=== PATIENT | female | born 2000 | race Caucasian/White ===

== ENCOUNTER 2019-10-05 18:19 | Inpatient (IN) | payer OTHER ==
--- NOTE | 2019-10-05 18:32 | PDOC ---
Rapid Medical Evaluation Time Seen by Provider: 10/05/19 18:24 Medical Evaluation: 10/05/19 18:24 I have performed a brief in-person evaluation of this patient. The patient presents with a chief complaint of:chronic nausea, mostly in the am, worsened today and hears "gas sounds" to LUQ. Has been seen for same in past and dx w/ "depression and morning anxiety" per pt. Was on anti-depression meds in past but took herself off meds. No abd pain, change to BM, f/c. Admits to freq marijuana use Pertinent physical exam findings:appears mildy anxious and disheveled in triage, tachy in 150s I have ordered the following:labs/upreg The patient will proceed to the ED for further evaluation. Discharge Disposition - Diagnosis Anxiety, Nausea - Referrals - Patient Instructions - Post Discharge Activity
[2019-10-05 19:06] LABS: BASO % 0.4 % (0-2.0); EOS % 0.2 % (0-4.5); HEMATOCRIT 41.9 % (32.4-45.2); HEMOGLOBIN 14.3 GM/dL (10.7-15.3); LYMPH % 37.2 % (8-40); MCH 32.5 pg (25.7-33.7); MCHC 34.2 g/dl (32.0-36.0); MEAN CELL VOLUME 94.9 fl (80-96); MEAN PLT VOLUME 7.9 fl (7.5-11.1); MONO % 9.6 % (3.8-10.2); NEUT % 52.6 % (42.8-82.8); PLATELET COUNT 304 K/MM3 (134-434); RBC 4.41 M/mm3 (3.60-5.2); RDW 12.8 % (11.6-15.6); WHITE BLOOD COUNT 7.5 K/mm3 (4.0-10.0)
[2019-10-05 19:25] LABS: HCG,QUALITATIVE URINE Negative
--- NOTE | 2019-10-05 19:29 | PDOC ---
*Physical Exam - Vital Signs Last Vital Signs Temp Pulse Resp BP Pulse Ox 97.9 F 109 H 20 147/89 99 10/05/19 18:27 10/05/19 18:51 10/05/19 18:51 10/05/19 18:27 10/05/19 18:51 ED Treatment Course - LABORATORY CBC & Chemistry Diagram: 10/05/19 18:47 10/05/19 18:47 - ADDITIONAL ORDERS Additional order review: Laboratory Results 10/05/19 18:47 Urine HCG, Qual Negative 10/05/19 18:47 RBC 4.41 MCV 94.9 MCHC 34.2 RDW 12.8 MPV 7.9 Neutrophils % 52.6 Lymphocytes % 37.2 Monocytes % 9.6 Eosinophils % 0.2 Basophils % 0.4 Medical Decision Making - Medical Decision Making 10/05/19 19:29 Patient seen by the advanced practice provider under my supervision. Ancillary testing reviewed as necessary. I agree with plan as outlined by the advanced practice provider. Discharge - Discharge Information Problems reviewed: Yes Clinical Impression/Diagnosis: Anxiety, Nausea, Ileus - Follow up/Referral - Patient Discharge Instructions - Post Discharge Activity
[2019-10-05 19:32] LABS: EPI CELLS >36 /uL (0-25.1); HYALINE CASTS 4 /uL (0-3.1); URINE APPEARANCE CLEAR; URINE BACTERIA 1118 /uL (0-1359); URINE BILIRUBIN NEGATIVE (NEGATIVE); URINE COLOR YELLOW; URINE GLUCOSE (UA) NEGATIVE (NEGATIVE); URINE KETONE TRACE (NEGATIVE); URINE LEUK ESTERASE NEGATIVE (NEGATIVE); URINE NITRITE NEGATIVE (NEGATIVE); URINE PROTEIN 3+ (NEGATIVE); URINE RBC 17 /uL (0-23.9); URINE WBC 25 /uL (0-25.8)
--- NOTE | 2019-10-05 19:54 | PDOC ---
History of Present Illness - General Chief Complaint: Nausea Stated Complaint: NAUSEA Time Seen by Provider: 10/05/19 18:24 History Source: Patient Exam Limitations: No Limitations - History of Present Illness Travel History: No Initial Comments: 10/05/19 19:51 HISTORY OF PRESENT ILLNESS: 18-year-old woman denies medical history who presents emergency department for evaluation of left upper quadrant pain and nausea over the past 3 days. Patient is unable to describe the pain in her abdomen but reports that it "makes a noise when I push." She denies any vomiting, diarrhea, constipation, rectal bleeding, dysuria, hematuria, vaginal bleeding or vaginal discharge. Patient endorses frequent recreational marijuana usage. Denies alcohol, tobacco or other illicits. No recent travel or sick contacts. PAST MEDICAL HISTORY: Denies past medical history SURGICAL HISTORY: Denies ALLERGIES: No known drug allergies REVIEW OF SYSTEMS General/Constitutional: Denies fever or chills. Denies weakness, weight change. HEENT: Denies change in vision. Denies ear pain or discharge. Denies sore throat. Cardiovascular: Denies chest pain or shortness of breath. Respiratory: Denies cough, wheezing, or hemoptysis. Gastrointestinal: See HPI Genitourinary: Denies dysuria, frequency, or change in urination. Musculoskeletal: Denies joint or muscle swelling or pain. Denies neck or back pain. Skin and breasts: Denies rash or easy bruising. Neurologic: Denies headache, vertigo, loss of consciousness, or loss of sensation. Psychiatric: Denies depression or anxiety. Endocrine: Denies increased thirst. Denies abnormal weight change. Hematologic/Lymphatic: Denies anemia, easy bleeding, or history of blood clots. Allergic/Immunologic: Denies hives or skin allergy. Denies latex allergy. PHYSICAL EXAM General Appearance: Well-appearing. Disheveled. No apparent distress, no intoxication. HEENT: EOMI, PERRLA, normal ENT inspection, normal voice, TMs normal, pharynx normal. No conjunctival pallor. No photophobia, scleral icterus. Neck: Supple. Trachea midline. No tenderness, rigidity, carotid bruit, stridor, lymphadenopathy, or thyromegaly. Respiratory/Chest: Lungs CTAB. No shortness of breath, chest tenderness, respiratory distress, accessory muscle use. No crackles, rales, rhonchi, stridor, wheezing, dullness Cardiovascular: RRR. S1, S2. No JVD, murmur, bradycardia, tachycardia. Vascular Pulses: Dorsalis-Pedis (R): 2+, Dorsalis-Pedis (L): 2+ Gastrointestinal/Abdominal: Normal bowel sounds. Abdomen soft, non-distended. No tenderness or rebound tenderness. No organomegaly, pulsatile mass, guarding, hernia, hepatomegaly, splenomegaly. Audible bowel sounds present upon palpation of the left upper quadrant. Musculoskeletal/Extremities: Normal inspection. FROM of all extremities, normal capillary refill. Pelvis Stable. No CVA tenderness. No tenderness to extremities, pedal edema, swelling, erythema or deformity. 10/05/19 19:54 Past History - Medical History Allergies/Adverse Reactions: Allergies Allergy/AdvReac Type Severity Reaction Status Date / Time No Known Allergies Allergy Verified 10/05/19 18:25 Home Medications: Ambulatory Orders NK [No Known Home Medication] 10/05/19 COPD: No Psychiatric Problems: Yes (ANXIETY, DEPRESSIONI) - Reproductive History Is Patient Now?: (UNKNOWN) - Immunization History Immunization Up to Date: No - Psycho-Social/Smoking History Smoking History: Never smoked - Substance Abuse Hx (Audit-C & DAST Scrn) How often the patient has a drink containing alcohol: Never Score: In Men: 4 or > Positive; In Women: 3 or > Positive: 0 Screen Result (Pos requires Nsg. Audit-10AR): Negative In the last yr the pt used illegal drug/Rx for NonMed reason: Yes Score: Yes response is considered Positive: 1 Screen Result (Positive result requires Nsg. DAST-10): Positive *Physical Exam - Vital Signs Last Vital Signs Temp Pulse Resp BP Pulse Ox 97.9 F 109 H 20 147/89 99 10/05/19 18:27 10/05/19 18:51 10/05/19 18:51 10/05/19 18:27 10/05/19 18:51 ED Treatment Course - LABORATORY CBC & Chemistry Diagram: 10/07/19 06:26 10/07/19 06:26 - ADDITIONAL ORDERS Additional order review: Laboratory Results 10/05/19 18:47 Urine Color Yellow Urine Appearance Clear Urine pH 6.0 Ur Specific [place] 1.031 Urine Protein 3+ H Urine Glucose (UA) Negative Urine Ketones Trace H Urine Blood Negative Urine Nitrite Negative Urine Bilirubin Negative Urine Urobilinogen 1.0 Ur Leukocyte Esterase Negative Urine WBC (Auto) 25 Urine RBC (Auto) 17 Urine Casts (Auto) 4 U Epithel Cells (Auto) >36 Urine Bacteria (Auto) 1118 Urine HCG, Qual Negative 10/05/19 18:47 RBC 4.41 MCV 94.9 MCHC 34.2 RDW 12.8 MPV 7.9 Neutrophils % 52.6 Lymphocytes % 37.2 Monocytes % 9.6 Eosinophils % 0.2 Basophils % 0.4 Medical Decision Making - Medical Decision Making 10/05/19 19:55 A/P: 18-year-old woman with left upper quadrant pain and nausea for the past 3 days Physical exam is unremarkable with the exception of disheveled appearance. EKG performed in triage sinus rhythm with rate of 121. Normal intervals present. Normal axis. Orders per RME will add cardiac profile and TSH CT chest abdomen pelvis with IV contrast Normal saline 1 L IV bolus Reassess 10/05/19 20:24 10/05/19 20:55 Laboratory Tests 10/05/19 10/05/19 10/05/19 18:47 18:47 18:47 WBC 7.5 RBC 4.41 Hgb 14.3 Hct 41.9 MCV 94.9 MCH 32.5 MCHC 34.2 RDW 12.8 Plt Count 304 MPV 7.9 Absolute Neuts (auto) 4.0 Neutrophils % 52.6 Lymphocytes % 37.2 Monocytes % 9.6 Eosinophils % 0.2 Basophils % 0.4 Nucleated RBC % 0 Sodium 141 Potassium 4.1 Chloride 107 Carbon Dioxide 23 Anion Gap 11 BUN 13.7 Creatinine 0.9 Est GFR (CKD-EPI)AfAm 106.68 Est GFR (CKD-EPI)NonAf 92.04 Random Glucose 142 H Calcium 9.6 Total Bilirubin 0.7 AST 14 L ALT 13 Alkaline Phosphatase 74 Total Protein 8.5 H Albumin 4.9 Lipase 81 TSH 0.86 Urine Color Yellow Urine Appearance Clear Urine pH 6.0 Ur Specific [place] 1.031 Urine Protein 3+ H Urine Glucose (UA) Negative Urine Ketones Trace H Urine Blood Negative Urine Nitrite Negative Urine Bilirubin Negative Urine Urobilinogen 1.0 Ur Leukocyte Esterase Negative Urine WBC (Auto) 25 Urine RBC (Auto) 17 Urine Casts (Auto) 4 U Epithel Cells (Auto) >36 Urine Bacteria (Auto) 1118 Urine HCG, Qual Negative Opiates Screen Methadone Screen Barbiturate Screen Phencyclidine Screen Ur Amphetamines Screen MDMA (Ecstasy) Screen Benzodiazepines Screen Cocaine Screen U Marijuana (THC) Screen Alcohol, Quantitative Pending 10/05/19 18:47 WBC RBC Hgb Hct MCV MCH MCHC RDW Plt Count MPV Absolute Neuts (auto) Neutrophils % Lymphocytes % Monocytes % Eosinophils % Basophils % Nucleated RBC % Sodium Potassium Chloride Carbon Dioxide Anion Gap BUN Creatinine Est GFR (CKD-EPI)AfAm Est GFR (CKD-EPI)NonAf Random Glucose Calcium Total Bilirubin AST ALT Alkaline Phosphatase Total Protein Albumin Lipase TSH Urine Color Urine Appearance Urine pH Ur Specific [place] Urine Protein Urine Glucose (UA) Urine Ketones Urine Blood Urine Nitrite Urine Bilirubin Urine Urobilinogen Ur Leukocyte Esterase Urine WBC (Auto) Urine RBC (Auto) Urine Casts (Auto) U Epithel Cells (Auto) Urine Bacteria (Auto) Urine HCG, Qual Opiates Screen Negative Methadone Screen Negative Barbiturate Screen Negative Phencyclidine Screen Negative Ur Amphetamines Screen Negative MDMA (Ecstasy) Screen Negative Benzodiazepines Screen Negative Cocaine Screen Negative U Marijuana (THC) Screen Positive A* Alcohol, Quantitative 10/05/19 22:00 CT scan read by Dr. Crane: There is no evidence of pulmonary embolus within the main pulmonary artery and its proximal branches bilaterally. No acute lung disease is present. No enlarged mediastinal or hilar lymph nodes are identified. Limited evaluation of the abdomen and pelvis due to lack of oral contrast and paucity of fat. There is suggestion of mild small bowel ileus in the pelvis. However there is no CT evidence of an acute process in the abdomen/pelvis. Correlate clinically for further evaluation. Will admit patient to hospitalist service for bowel rest and evaluation by surgery in the morning. Discharge - Discharge Information Problems reviewed: Yes Clinical Impression/Diagnosis: Anxiety, Nausea, Ileus Condition: Stable - Follow up/Referral - Patient Discharge Instructions - Post Discharge Activity
[2019-10-05 20:27] LABS: COCAINE, UR NEGATIVE ng/ml (CUTOFF=300); METHADONE, UR NEGATIVE ng/ml (CUTOFF=300); OPIATES, URI NEGATIVE ng/ml (CUTOFF=300); PHENCYCLIDINE,URINE NEGATIVE ng/ml (CUTOFF=25); URINE AMPHETAMINES NEGATIVE ng/ml (CUTOFF=500); URINE BARBITURATES NEGATIVE ng/ml (CUTOFF=200); URINE BENZODIAZEPINES NEGATIVE ng/ml (CUTOFF=200)
[2019-10-05] MEDS ORDERED: SODIUM CHLORIDE 1,000 ML IV STA (20:27)
[2019-10-05 20:34] LABS: ALBUMIN 4.9 g/dl (3.4-5.0); ALK PHOS 74 U/L (45-117); ANION GAP 11 MMOL/L (8-16); BILIRUBIN,TOTAL 0.7 mg/dL (0.2-1); BLOOD UREA NITROGEN 13.7 mg/dL (7-18); CALCIUM 9.6 mg/dL (8.5-10.1); CHLORIDE 107 mmol/L (98-107); CO2 23 mmol/L (21-32); CREATININE 0.9 mg/dL (0.55-1.3); GLUCOSE,RANDOM 142 mg/dL (74-106); LIPASE 81 U/L (73-393); POTASSIUM 4.1 mmol/L (3.5-5.1); SGOT/AST 14 U/L (15-37); SGPT/ALT 13 U/L (13-61); SODIUM 141 mmol/L (136-145); TOT PROT 8.5 g/dl (6.4-8.2)
--- NOTE | 2019-10-05 22:28 | PN ---
Teaching Attending Note Name of Resident: Joaquim Da Silva ATTENDING PHYSICIAN STATEMENT I saw and evaluated the patient. I reviewed the resident's note and discussed the case with the resident. I agree with the resident's findings and plan as documented. SUBJECTIVE: Patient is a 18-year-old woman with PMH of Marijuana use who presents to the ER with left upper quadrant abdominal pain and nausea over the past 3 days. Patient is unable to describe the pain in her abdomen but reports that it "makes a noise when I push." She denies any vomiting, diarrhea, constipation, rectal bleeding, dysuria, hematuria, vaginal bleeding or abnormal vaginal discharge. She has poor appetite and has had about 10lbs of unintended weight loss in the past 3 months. She is sexually active with one partner and was on Depo provera for control up to 3 months ago. Has had menorrhagia since stopping Depo provera. LMP was 1 week ago. 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 Patient denies chest pain, shortness of breath, palpitations, dizziness, fever, chills, melena, hematochezia or hematuria. Patient endorses frequent recreational marijuana usage. Her entire family is in [facility] and she is unaware of any relevant medical history. Denies alcohol, tobacco or other illicit drug use. No sick contacts or recent travels. OBJECTIVE: Alert Vital Signs Period Temp Pulse Resp BP Sys/Pérez Pulse Ox Last 24 Hr 97.9 F 109-145 20-20 147/89 99-100 HEENT: No Jaundice, eye redness or discharge, PERRLA, EOMI. Normocephalic, atraumatic. External ears are normal and hearing is grossly intact. No nasal discharge. Neck: Supple, nontender. No palpable adenopathy or thyromegaly. No JVD Chest: Good effort. Clear to auscultation and percussion. Heart: Regular. No S3, rub or murmur Abdomen: Not distended, soft, LUQ tenderness; no HSM. No rebound or guarding. Normal bowel sounds. Ext: Peripheral pulses intact. No leg edema. Skin: Warm and dry. No petechiae, rash or ecchymosis. Neuro: Alert. Oriented x3. CN 2-12 grossly intact. Sensation grossly intact in all four extremities and DTR are symmetric. Psych: Appropriate mood and affect. Good insight. Abnormal Lab Results 10/05/19 10/05/19 10/05/19 18:47 18:47 18:47 Random Glucose 142 H AST 14 L Total Protein 8.5 H Urine Protein 3+ H Urine Ketones Trace H U Marijuana (THC) Screen Positive A* Home Medications Medication Instructions Recorded NK [No Known Home Medication] 10/05/19 Current Medications Generic Name Dose Route Start Last Admin Trade Name Freq PRN Reason Stop Dose Admin Heparin Sodium (Porcine) 5,000 unit 10/06/19 06:00 Heparin - SQ TID MEL Dextrose/Sodium Chloride 1,000 mls @ 125 mls/hr 10/06/19 01:15 10/06/19 01:44 D5-Ns - IV 125 mls/hr [facility] Administration ASSESSMENT AND PLAN: 1. Small bowel Ileus - Cause unclear though weight loss and proteinuria suggest a systemic illness. Chest CTA didnot show pulmonary embolism and CT abdomen/pelvis with IV contrast shows small bowel ileus and multiple cysts in t he right ovary. She has proteinuria and urine toxicology shows marijuana. Will keep her NPO, give IV D5NS, get DEIRDRE, HbA1c, HIV test, lipid profile, urine protein/creatinine ratio, ESR, CRP and consult GI. Use tylenol PRN for pain control. Viral testing for COVID-19 ordered and patient placed on airborne, droplet and contact isolation. EKG shows sinus tachycardia at 121/minute and QTc [address]-T wave changes and conduction delay?. Initial troponin is negative. Will get repeat EKG after another liter of IV fluid. Consult Senior Research Project Manager for menorrhagia. 2. DVT prophylaxis - Lovenox 40 mg SQ q 24 hours. 3. Advance directives - Full code
[2019-10-06 01:05] VITALS: BMI 17.8
[2019-10-06] MEDS ORDERED: DEXTROSE 5%-NORMAL SALINE 1,000 ML IV SCH (01:15)
[2019-10-06] MEDS: HEPARIN NA (PORCINE) 5,000 UNITS/ML 1ML VIAL SQ SCH ×3 (05:24→21:21)
--- NOTE | 2019-10-06 06:11 | HP ---
HISTORY OF PRESENT ILLNESS: Patient is a 18-year-old woman with PMH of UTI and Marijuana use who presents to the ER with left upper quadrant abdominal pain with associated nausea of about 3 months. She decided to come to the hospital because it became worse the past 3 days. She is unable to accurately describe it. Also interpretes the pain as pressue like and makes noise when she pushes down her periumblical region. She denies any vomiting, diarrhea, constipation, rectal bleeding, dysuria, vaginal bleeding or abnormal vaginal discharge. She reports reduced appetite and early satiety and has had about 10lbs of unintended weight loss in the past 3 months. 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 Patient denies chest pain, shortness of breath, palpitations, dizziness, fever, chills, melena, hematochezia or hematuria. Patient endorses frequent recreational marijuana usage. Her entire family is in [facility] and she is unaware of any relevant medical history. Denies alcohol, tobacco or other illicit drug use. No sick contacts or recent travels. Recent Travel: None PAST SURGICAL HISTORY: Left femoral hernioraphe Social History: Smoking: None Alcohol:None Drugs: Cannabis Allergies No Known Allergies AllergY OBS/GYNAE: LMP was a week ago. Stopped using Depo provera 3months ago. Not on any form of contraceptive currently. Menorrhagia after cessation of depo provera use. Now using daily tampoon use of 4 vs 3 previously. Nightly tampoon use of zero to 1 or 2 to avoid fiscal clerk dripping of. She is sexually active with one male partner. HOME MEDICATIONS: Home Medications Medication Instructions Recorded NK [No Known Home Medication] 10/05/19 REVIEW OF SYSTEMS Negative except as above Vital Signs - 24 hr 10/05/19 10/05/19 10/05/19 18:27 18:51 23:36 Temperature 97.9 F Pulse Rate 145 H Pulse Rate [ 109 H Apical] Respiratory 20 20 Rate Blood Pressure 147/89 Blood Pressure [Left Arm] O2 Sat by Pulse 100 99 100 Oximetry (%) 10/05/19 10/06/19 10/06/19 23:46 01:01 01:10 Temperature 98.5 F 98.2 F Pulse Rate 59 L Pulse Rate [ 72 Apical] Respiratory 20 18 Rate Blood Pressure 105/60 Blood Pressure 105/54 L [Left Arm] O2 Sat by Pulse 99 99 99 Oximetry (%) PHYSICAL EXAMINATION GENERAL: Awake, alert, and fully oriented, in no acute distress. HEAD: Normal with no signs of trauma. EYES: Asclera anicteric, conjunctiva clear. No lid lag. EARS: No hearing impairement NECK: Normal range of motion, supple without lymphadenopathy, JVD, or masses. LUNGS: Vesicular Breath sounds heard and b/l. No wheezes nor crackles. No sign of respiratory distress. HEART: Bedside repeated GA= 59/MIN, Regular rate and rhythm, normal S1 and S2 without murmur, rub or gallop. ABDOMEN: Soft, nontender, not distended, normoactive bowel sounds, no guarding, no rebound, no masses. No hepatomegaly or splenomegaly. FARA: MUSCULOSKELETAL: Normal range of motion at all joints. No bony deformities or tenderness. No CVA tenderness. UPPER EXTREMITIES: 2+ pulses, warm, well-perfused. No cyanosis. No clubbing. No peripheral edema. LOWER EXTREMITIES: 2+ pulses, warm, well-perfused. No calf tenderness. No peripheral edema. NEUROLOGICAL: Normal speech. Normal gait. PSYCHIATRIC: Cooperative. Good eye contact. Appropriate mood and affect. SKIN: Warm, dry, normal turgor, no rashes or lesions noted, normal capillary refill. Laboratory Results - last 24 hr 10/05/19 10/05/19 10/05/19 18:47 18:47 18:47 WBC 7.5 RBC 4.41 Hgb 14.3 Hct 41.9 MCV 94.9 MCH 32.5 MCHC 34.2 RDW 12.8 Plt Count 304 MPV 7.9 Absolute Neuts (auto) 4.0 Neutrophils % 52.6 Lymphocytes % 37.2 Monocytes % 9.6 Eosinophils % 0.2 Basophils % 0.4 Nucleated RBC % 0 Sodium 141 Potassium 4.1 Chloride 107 Carbon Dioxide 23 Anion Gap 11 BUN 13.7 Creatinine 0.9 Est GFR (CKD-EPI)AfAm 106.68 Est GFR (CKD-EPI)NonAf 92.04 Random Glucose 142 H Calcium 9.6 Total Bilirubin 0.7 AST 14 L ALT 13 Alkaline Phosphatase 74 Creatine Kinase Creatine Kinase Index CK-MB (CK-2) Troponin I Total Protein 8.5 H Albumin 4.9 Lipase 81 TSH 0.86 Urine Color Yellow Urine Appearance Clear Urine pH 6.[address] 1.031 Urine Protein 3+ H Urine Glucose (UA) Negative Urine Ketones Trace H Urine Blood Negative Urine Nitrite Negative Urine Bilirubin Negative Urine Urobilinogen 1.0 Ur Leukocyte Esterase Negative Urine WBC (Auto) 25 Urine RBC (Auto) 17 Urine Casts (Auto) 4 U Epithel Cells (Auto) >36 Urine Bacteria (Auto) 1118 Urine HCG, Qual Negative Stool Occult Blood Opiates Screen Methadone Screen Barbiturate Screen Phencyclidine Screen Ur Amphetamines Screen MDMA (Ecstasy) Screen Benzodiazepines Screen Cocaine Screen U Marijuana (THC) Screen Alcohol, Quantitative < 3 10/05/19 10/05/19 10/06/19 18:47 21:00 00:37 WBC RBC Hgb Hct MCV MCH MCHC RDW Plt Count MPV Absolute Neuts (auto) Neutrophils % Lymphocytes % Monocytes % Eosinophils % Basophils % Nucleated RBC % Sodium Potassium Chloride Carbon Dioxide Anion Gap BUN Creatinine Est GFR (CKD-EPI)AfAm Est GFR (CKD-EPI)NonAf Random Glucose Calcium Total Bilirubin AST ALT Alkaline Phosphatase Creatine Kinase 188 Creatine Kinase Index No Result Required. CK-MB (CK-2) < 1.0 Troponin I < 0.02 Total Protein Albumin Lipase TSH Urine Color Urine Appearance Urine pH Ur Specific [address] Urine Protein Urine Glucose (UA) Urine Ketones Urine Blood Urine Nitrite Urine Bilirubin Urine Urobilinogen Ur Leukocyte Esterase Urine WBC (Auto) Urine RBC (Auto) Urine Casts (Auto) U Epithel Cells (Auto) Urine Bacteria (Auto) Urine HCG, Qual Stool Occult Blood Negative Opiates Screen Negative Methadone Screen Negative Barbiturate Screen Negative Phencyclidine Screen Negative Ur Amphetamines Screen Negative MDMA (Ecstasy) Screen Negative Benzodiazepines Screen Negative Cocaine Screen Negative U Marijuana (THC) Screen Positive A* Alcohol, Quantitative ASSESSMENT/PLAN: # Small bowel Ileus: Etiology is unclear Significant unintentional weight loss over 3 months and proteinuria suggest a systemic illness. Chest CTA did not show pulmonary embolism and CT abdomen/pelvis with IV contrast shows small bowel ileus and multiple cysts in the right ovary. Urine is positive for 3+ protein Urine toxicology shows marijuana. #Bradycardia on ekg: EKG shows sinus tachycardia at 121/minute and QTc [address]-T wave changes and conduction delay? Another liter of IV fluid was administered before ordering repeat ekg Initial troponin is negative. Repeat EKG shows QTC= 384, HR with sinus bradycardia. Cannabis dependence could predispose to bradycardia Though not clinically suspective, please continue to monitor for sign of syncope: sudden fall,blackouts, dizziness, lightheaded visual disturbance # Keep on NPO Give IV D5NS DEIRDRE HbA1c HIV test RPR Lipid profile, urine protein/creatinine ratio, ESR, CRP and consult GI. Use tylenol PRN for pain control. Viral testing for COVID-19 ordered. Patient placed on airborne, droplet and contact isolation. Consult Tare Worker for menorrhagia. # DVT prophylaxis - Lovenox 40 mg SQ q 24 hours. # Advance directives - Full code Visit type - Emergency Visit Emergency Visit: Yes ED Registration Date: 10/05/19 Care time: The patient presented to the Emergency Department on the above date a nd was hospitalized for further evaluation of their emergent condition. - New Patient This patient is new to me today: Yes Date on this admission: 10/05/19 - Critical Care Critical Care patient: No ATTENDING PHYSICIAN STATEMENT I saw and evaluated the patient. I reviewed the resident's note and discussed the case with the resident. I agree with the resident's findings and plan as documented. SUBJECTIVE: OBJECTIVE: ASSESSMENT AND PLAN:
--- NOTE | 2019-10-06 09:02 | EKG ---
Test Reason : Blood Pressure : / mmHG Vent. Rate : 058 BPM Atrial Rate : 058 BPM P-R Int : 166 ms QRS Dur : 084 ms QT Int : 392 ms P-R-T Axes : 067 046 048 degrees QTc Int : 384 ms SINUS BRADYCARDIA WITH MARKED SINUS ARRHYTHMIA OTHERWISE NORMAL ECG WHEN COMPARED WITH ECG OF 05-OCT-2019 18:49, VENT. RATE HAS DECREASED BY 63 BPM RSR' PATTERN IN V1 IS NO LONGER PRESENT Confirmed by Paul Vo ([id number]) on 10/06/2019 9:02:18 AM Referred By: Confirmed By:Paul Vo
--- NOTE | 2019-10-06 09:07 | EKG ---
Test Reason : Blood Pressure : / mmHG Vent. Rate : 121 BPM Atrial Rate : 121 BPM P-R Int : 126 ms QRS Dur : 096 ms QT Int : 298 ms P-R-T Axes : 075 052 044 degrees QTc Int : 423 ms SINUS TACHYCARDIA LEFT ATRIAL ENLARGEMENT RSR' OR QR PATTERN IN V1 SUGGESTS RIGHT VENTRICULAR CONDUCTION DELAY NONSPECIFIC ST ABNORMALITY ABNORMAL ECG NO PREVIOUS ECGS AVAILABLE Confirmed by Paul Vo ([id number]) on 10/06/2019 9:07:00 AM Referred By: Confirmed By:Paul Vo
--- NOTE | 2019-10-06 11:37 | PN ---
Progress Note (short form) - Note Progress Note: GI CONSULT DICTATED DIET ADVANCED UNLIKELY OBSTRUCTIVE PROCESS /
--- NOTE | 2019-10-06 16:09 | PN ---
Teaching Attending Note Name of Resident: Navarro Duran ATTENDING PHYSICIAN STATEMENT I saw and evaluated the patient. I reviewed the resident's note and discussed the case with the resident. I agree with the resident's findings and plan as documented. SUBJECTIVE: Seen and examined at bedside. Patient reports nausea is acute on chronic. She has had nearly daily vomiting before breakfast in the morning for 4 months and for several years prior to that she also had vomiting in the morning though not as frequently. States she is currently feeling well. Pending GI evaluation as well as follow-up of proteinuria OBJECTIVE: Last Vital Signs Temp Pulse Resp BP Pulse Ox 98.5 F 58 L 18 115/66 100 10/06/19 14:00 10/06/19 14:00 10/06/19 05:59 10/06/19 14:00 10/06/19 05:59 PE: Per resident note Labs/Imaging: reviewed ASSESSMENT AND PLAN: 18-year-old female with past medical history of marijuana, chronic morning nausea and vomiting who presents with worsening and nausea and vomiting over the last several days. Found to have small bowel ileus #Acute on chronic nausea and vomiting in the setting of ileus Patient has had no abdominal surgeries or other reasons that would predispose an otherwise young healthy woman for ileus. Chronic nature of the symptoms suggest there is an underlying disorder Symptoms not consistent with cannabinoid cyclic vomiting syndrome GI consulted: Pending recommendations Start full liquid diet #Proteinuria Pending protein creatinine ratio HIV negative Not diabetic If protein creatinine ratio is significantly elevated will get inpatient consult, otherwise
--- NOTE | 2019-10-06 17:14 | CONS ---
DATE OF CONSULTATION: DATE OF DICTATION: 10/06/2019 GASTROENTEROLOGY CONSULTATION HISTORY OF PRESENT ILLNESS: The patient is a 18-year-old female with a past medical history of urinary tract infections, frequent marijuana use, who is admitted to the hospital with complaints of left upper quadrant abdominal pain and nausea and vomiting intermittent for approximately 3 months. She states her pain worsened, and her vomiting over the past couple of days prior to admission, prompting her to come in for further evaluation. She denies any hematemesis, known hematochezia, constipation, diarrhea. She does admit to weight loss over the past couple of months and reduced appetite. She has never had an endoscopic evaluation. PAST MEDICAL AND SURGICAL HISTORY: As listed in the HPI. ALLERGIES: No known drug allergies. SOCIAL HISTORY: Does not smoke, drink, but does smoke marijuana. FAMILY HISTORY: No history of GI or gynecological malignancy. MEDICATION: No home medication. REVIEW OF SYSTEMS: Negative as per the HPI. PHYSICAL EXAMINATION: Vital Signs: Temperature 98, pulse 58, blood pressure 115/66, respiratory rate 18, oxygen saturation 100% on room air. General: In no acute distress. HEENT: Anicteric sclerae. Cardiovascular: S1, S2, regular rate and rhythm. Lungs: Bilaterally clear to auscultation. Abdomen: Soft, nontender. Extremities: No edema. LABORATORY: White blood cell count 7.5, hemoglobin and hematocrit 14/41, MCV 94, platelet count 304. Sodium 141, potassium 4.1, BUN/creatinine 13/0.9, AST 14, ALT 13, alkaline phosphatase 74, lipase 81. Urine: 3+ protein, trace ketones. Stool for occult blood was negative. Toxicology screen was positive for marijuana. DEIRDRE screen was pending. COVID-19 is still pending. HIV was negative. She had an abdomen and pelvis CT scan which revealed no evidence of pulmonary embolism, limited evaluation of the abdominal pelvis due to lack of oral contrast suggestion of a mild small bowel ileus in the pelvis. IMPRESSION: Nausea, vomiting, abdominal pain, most likely secondary to her frequent marijuana use, cyclical vomiting syndrome versus an underlying infectious process. RECOMMENDATION: Advance diet as tolerated, abstinence from marijuana is recommended, antiemetic therapy as needed, Zofran 4 mg p.o. q.8 hours. Gentle hydration. If she tolerates her diet, she can be discharged tomorrow with outpatient followup. Considering she has had decreased appetite and weight loss, she would benefit from a diagnostic upper endoscopy; however, this can be done as an outpatient. DO ADI LOPEZ/[id number]
--- NOTE | 2019-10-06 18:33 | CONSULT ---
Consult - text type - Consultation Consultation Note: 18yo G0 here with LUQ pain, noted a history of heavy periods and thus [facility] consulted for menorrhagia Pt previously on Depo with last shot given 1 year ago. Receiving [facility] care from [facility] in [place] Not actively bleeding. LMP 1 week ago. Previous periods were always light and 3 days in length. Now periods are longer and occ twice a month. Chart and labs reviewed; no anemia and low suspicious for serious menorrhagia given Hct of 41. Pt has outside OBGYN at [facility] whom has been giving her Depo and may follow up as an outpatient for ongoing discussion and care there or at [facility] care. Given she is not actively bleeding, no clinical evidence of menorrhagia, inpatient management is not indicted at this time. Isrrael Troy MD
--- NOTE | 2019-10-06 20:46 | PN ---
Physical Exam: SUBJECTIVE: Patient seen and examined at bedside. Patient is currently comfortable and does not have nausea/vomiting/abdominal pain. Patient explains that her nausea ensues in the morning and especially with brushing teeth. She also reports that marijuana helps to reduce the sensation of nausea. OBJECTIVE: Vital Signs Period Temp Pulse Resp BP Sys/Pérez Pulse Ox Last 24 Hr 97.9 F-98.5 F 58-80 18-20 98-115/50-66 99-100 GENERAL: The patient is awake, alert, and fully oriented, in no acute distress. LUNGS: Breath sounds equal, clear to auscultation bilaterally, no wheezes, no crackles, no accessory muscle use. HEART: Regular rate and rhythm, S1, S2 without murmur, rub or gallop. ABDOMEN: Soft, nontender, nondistended, normoactive bowel sounds, no guarding, no rebound, no hepatosplenomegaly, no masses. EXTREMITIES: 2+ pulses, warm, well-perfused, no edema. Laboratory Results - last 24 hr 10/05/19 10/05/19 10/06/19 18:47 21:00 00:37 Hemoglobin A1c % Creatine Kinase 188 Creatine Kinase Index No Result Required. CK-MB (CK-2) < 1.0 Troponin I < 0.02 Stool Occult Blood Negative Alcohol, Quantitative < 3 Syphilis Serology HIV Ag/Ab Combo Qual HIV-1 Antibody HIV Ag/Ab Interpret HIV-2 Antibody HIV 1&2 Ag/Ab, 4th Gen HIV 1&2 Ab Final Interp 10/06/19 10/06/19 10/06/19 05:25 05:25 05:25 Hemoglobin A1c % 5.5 Creatine Kinase Creatine Kinase Index CK-MB (CK-2) Troponin I Stool Occult Blood Alcohol, Quantitative Syphilis Serology Non-reactive HIV Ag/Ab Combo Qual HIV-1 Antibody Cancelled HIV Ag/Ab Interpret Cancelled HIV-2 Antibody Cancelled HIV 1&2 Ag/Ab, 4th Gen Cancelled HIV 1&2 Ab Final Interp Cancelled 10/06/19 05:25 Hemoglobin A1c % Creatine Kinase Creatine Kinase Index CK-MB (CK-2) Troponin I Stool Occult Blood Alcohol, Quantitative Syphilis Serology HIV Ag/Ab Combo Qual Negative HIV-1 Antibody HIV Ag/Ab Interpret HIV-2 Antibody HIV 1&2 Ag/Ab, 4th Gen HIV 1&2 Ab Final Interp Active Medications Generic Name Dose Route Start Last Admin Trade Name Freq PRN Reason Stop Dose Admin Heparin Sodium (Porcine) 5,000 unit 10/06/19 06:00 10/06/19 13:51 Heparin - SQ 5,000 unit TID MEL Administration ASSESSMENT/PLAN: Diana is a 18F w a h/o marijuana use, nausea and vomiting shortly after waking up in the morning and worsening for the past [address] scan reveals small bowel ileus. 2 #Acute on chronic nausea and vomiting - CT SCAN: No evidence of pulmonary embolus with the main pulmonary artery and its proximal branches, bilaterally. No acute lung disease present. No enlarged mediastinal or hilar lymph nodes are identified. There is suggestion of mild small bowel ileus in the pelvis. However, there is no CT evidence of acute process in the abdomen pelvis, Correlate clinically for further evaluation. -Unknown eitiology or past medical history of ileus - unlikely for annabinoid cyclic vomiting syndrome - GI consulted - Dr. Hair, Diana #Proteinuria Pending protein creatinine ratio HIV negative - Urine protein +3 -continue to monitor UA, CBC, BMP #FEN - Full liquid diet Visit type - Emergency Visit Emergency Visit: Yes ED Registration Date: 10/05/19 Care time: The patient presented to the Emergency Department on the above date and was hospitalized for further evaluation of their emergent condition. - New Patient This patient is new to me today: Yes Date on this admission: 10/07/19 - Critical Care Critical Care patient: No - Discharge Referral Referred to [facility] Med P.C.: No ATTENDING PHYSICIAN STATEMENT I saw and evaluated the patient. I reviewed the resident's note and discussed the case with the resident. I agree with the resident's findings and plan as documented. SUBJECTIVE: OBJECTIVE: ASSESSMENT AND PLAN:
[2019-10-07] MEDS: HEPARIN NA (PORCINE) 5,000 UNITS/ML 1ML VIAL SQ SCH ×2 (06:12→13:01)
[2019-10-07 07:41] LABS: BASO % 0.6 % (0-2.0); EOS % 0.3 % (0-4.5); HEMATOCRIT 37.8 % (32.4-45.2); HEMOGLOBIN 12.9 GM/dL (10.7-15.3); MCH 31.9 pg (25.7-33.7); MCHC 34.1 g/dl (32.0-36.0); MEAN CELL VOLUME 93.5 fl (80-96); MEAN PLT VOLUME 8.2 fl (7.5-11.1); MONO % 9.3 % (3.8-10.2); NEUT % 45.8 % (42.8-82.8); PLATELET COUNT 278 K/MM3 (134-434); RBC 4.04 M/mm3 (3.60-5.2); RDW 12.7 % (11.6-15.6); WHITE BLOOD COUNT 6.4 K/mm3 (4.0-10.0)
[2019-10-07 08:09] LABS: BLOOD UREA NITROGEN 9.5 mg/dL (7-18); CALCIUM 8.9 mg/dL (8.5-10.1); CREATININE 0.7 mg/dL (0.55-1.3); MAGNESIUM 2.3 mg/dL (1.8-2.4); PHOSPHOROUS 4.4 mg/dL (2.5-4.9); POTASSIUM 3.8 mmol/L (3.5-5.1)
--- NOTE | 2019-10-07 12:04 | PN.GI ---
GI Progress Note Subjective: No vomiting Abdominal pain improved Did not eat breakfast - Objective Vital Signs: Vital Signs Temperature 97.7 F 10/07/19 05:59 Pulse Rate 50 L 10/07/19 05:59 Respiratory Rate 18 10/07/19 09:00 Blood Pressure 102/64 10/07/19 05:59 O2 Sat by Pulse Oximetry (%) 98 10/07/19 09:00 Constitutional: Calm Eyes: No: Sclera Icterus Cardiovascular: Yes: Regular Rate and Rhythm Respiratory: Yes: CTA Bilaterally Gastrointestinal Inspection: Yes: Other (decorative umbilical rings in place). No: Distention ...Auscultate: Yes: Normoactive Bowel Sounds ...Palpate: Yes: Soft. No: Hepatomegaly, Splenomegaly, Tenderness Edema: No (No LE edema) Neurological: Yes: Alert Labs: CBC, BMP 10/07/19 06:26 10/07/19 06:26 Hepatic Panel Total Bilirubin 0.7 mg/dL (0.2-1) 10/05/19 18:47 AST 14 U/L (15-37) L 10/05/19 18:47 ALT 13 U/L (13-61) 10/05/19 18:47 Alkaline Phosphatase 74 U/L (45-117) 10/05/19 18:47 Albumin 4.9 g/dl (3.4-5.0) 10/05/19 18:47 Problem List - Problems (1) Nausea Assessment/Plan: N/V and abdominal pain improved Diet as tolerated Urges complete cessation of marijuana Outpatient evaluation if continued improvement If persistent symptoms, make NPO after midnight except meds and order upper GI series Code(s): R11.0 - NAUSEA
[2019-10-07 13:27] VITALS: BP 105/65; PULSE 73; TEMP 98.3
--- NOTE | 2019-10-07 17:16 | PN ---
Teaching Attending Note Name of Resident: Ghassan Kerns ATTENDING PHYSICIAN STATEMENT I saw and evaluated the patient. I reviewed the resident's note and discussed the case with the resident. I agree with the resident's findings and plan as documented. SUBJECTIVE: Seen and examined at bedside. Patient was slightly nauseous this morning but did not vomit. Ate her breakfast without complication and is asking to be discharged. Patient will follow-up with gastroenterology as an outpatient for further work-up OBJECTIVE: Last Vital Signs Temp Pulse Resp BP Pulse Ox 98.3 F 73 18 105/65 99 10/07/19 13:25 10/07/19 13:25 10/07/19 13:25 10/07/19 13:25 10/07/19 12:04 PE: Per resident note Labs/Imaging: reviewed ASSESSMENT AND PLAN: 18-year-old female with past medical history of marijuana, chronic morning nausea and vomiting who presents with worsening and nausea and vomiting over the last several days. Found to have small bowel ileus. Patient was initially started on full liquid diet which she tolerated advance to full diet. She did not have any vomiting the day of discharge. Was seen by gastroenterology who recommended outpatient follow-up. Patient found also found to have mild proteinuria with protein creatinine ratio of 0.3. Patient should have follow-up urinalysis in several weeks to see if it is persistent. A1c and HIV were both normal.
--- NOTE | 2019-10-08 07:19 | DS ---
Physical Exam: SUBJECTIVE: Patient seen and examined at bedside. Tolerating a full diet. Patient endorses resolution of symptoms. Patient agrees to follow up with Dr. Hair outpatient. OBJECTIVE: Vital Signs Period Temp Pulse Resp BP Sys/Pérez Pulse Ox Last 24 Hr 98.2 F-98.3 F 61-73 16-18 105-108/65-69 98-99 PHYSICAL EXAM GENERAL: The patient is awake, alert, and fully oriented, in no acute distress. ENT: Ears normal, nares patent, oropharynx clear without exudates, moist mucous membranes. LUNGS: Breath sounds equal, clear to auscultation bilaterally, no wheezes, no crackles, no accessory muscle use. HEART: Regular rate and rhythm, S1, S2 without murmur, rub or gallop. ABDOMEN: Soft, nontender, nondistended, normoactive bowel sounds, no guarding, no rebound, no hepatosplenomegaly, no masses. EXTREMITIES: 2+ pulses, warm, well-perfused, no edema. SKIN: Warm, dry, normal turgor, no rashes or lesions noted. LABS Laboratory Results - last 24 hr 10/06/19 10/07/19 10/07/19 05:25 06:26 06:26 WBC 6.4 RBC 4.04 Hgb 12.9 Hct 37.8 MCV 93.5 MCH 31.9 MCHC 34.1 RDW 12.7 Plt Count 278 MPV 8.2 Absolute Neuts (auto) 2.9 Neutrophils % 45.8 Lymphocytes % 44.0 H Monocytes % 9.3 Eosinophils % 0.3 Basophils % 0.6 Nucleated RBC % 0 Sodium 142 Potassium 3.8 Chloride 110 H Carbon Dioxide 22 Anion Gap 10 BUN 9.5 Creatinine 0.7 Est GFR (CKD-EPI)AfAm 144.56 Est GFR (CKD-EPI)NonAf 124.72 Random Glucose 79 Calcium 8.9 Phosphorus 4.4 Magnesium 2.3 DEIRDRE Screen Negative HOSPITAL COURSE: Date of Admission:10/05/19 Ms. Leonardo is a 18F w a h/o nausea and vomiting for the past 4 years with no known etiology. She reports to the ED due to increased frequency of vomiting without any identifiable triggers. The patient endorses that she has nbnb vomitus prior to arrival and now has insurance to work up her condition. On CT scan the patient was found to have small bowel ileus and was consulted with Dr. Hair for GI. The patient was found to have significant lab values for a 3+ Urine protein and protein:creatinine = 0.3 The patient's symptoms subsided and was evaluated by GI who she agreed to follow up w outpatient. Date of Discharge: 10/08/19 Minutes to complete discharge: 35 Discharge Summary Problems reviewed: Yes Reason For Visit: ANXIETY,NAUSEA Condition: Stable - Instructions Diet, Activity, Other Instructions: YOUR VISIT: You were admitted to the hospital for worsening abdominal pain and nausea. While you were here we evaluated you with blood work, lab work, and imaging including an chest abdomen and pelvic CT scan which was interpreted as a small bowel ileus which can signifiy an area of slow moving intestines . You were evaluated by our Python Consultant (Dr. Hair) and she will see you outpatient for further work up of your nausea and vomiting. You were monitored carefully for abdominal pain and vitals by the internal medicine team. REFERRAL: Please follow up with your Python Consultant for testing within 1 week after discharge (Dr. Diana Garcia) Please follow up with your primary care doctor to review your hospital course and evaluate your progress within 1 week after discharge. If you do not have a primary care doctor you can follow up with Dr. Ghassan Kerns at the [facility] in [place]. ADDITIONAL INFORMATION: You are being discharged home Please return to the Emergency Department immediately if you begin to experienc e, nausea, vomiting, fevers or chills, increased abdominal pain, shortness of breath, chest pain, new or concerning symptoms. Referrals: Diana Hair DO [Staff Physician] - 1 Week (Small bowel ileus work up Proteinuria +3) Ghassna Kerns, ELLIE IM [Resident] - 1 Week (abdominal pain, nausea, vomiting work up ) Disposition: HOME - Home Medications Comprehensive Discharge Medication List: Ambulatory Orders NK [No Known Home Medication] 10/05/19 This patient is new to me today: No Emergency Visit: Yes ED Registration Date: 10/05/19 Care time: The patient presented to the Emergency Department on the above date and was hospitalized for further evaluation of their emergent condition. Critical Care patient: No - Discharge Referral Referred to [facility] Med P.C.: No ATTENDING PHYSICIAN STATEMENT I saw and evaluated the patient. I reviewed the resident's note and discussed the case with the resident. I agree with the resident's findings and plan as documented. SUBJECTIVE: OBJECTIVE: ASSESSMENT AND PLAN:
== END 2019-10-07 15:00 | disposition home or self-care (01) | DRG 247 ==
LOC: JER 18:19 → JERBED 22:44 → J7W 23:55
PROVIDERS: ADMIT Internal Medicine; ATTEND Internal Medicine
DX: K56.7 Ileus, unspecified (principal); R63.4 Abnormal weight loss; Z68.1 Body mass index [BMI] 19.9 or less, adult; F12.90 Cannabis use, unspecified, uncomplicated; R10.12 Left upper quadrant pain; R11.0 Nausea; F41.8 Other specified anxiety disorders; R80.9 Proteinuria, unspecified; F12.988 Cannabis use, unspecified with other cannabis-induced disorder; N92.0 Excessive and frequent menstruation with regular cycle; R11.15 Cyclical vomiting syndrome unrelated to migraine; R63.0 Anorexia; R00.1 Bradycardia, unspecified
CPT/HCPCS: 36415; 71275-TC; 74177-TC; 80048; 80053; 80307; 81003; 82272; 82550; 82553; 82565; 83036; 83690; 83735; 84100; 84156; 84443; 84484; 84703; 85025; 86038; 86780; 87389; 93005; 93010; 99285-25; J1644; Q9967; U0003

== ENCOUNTER 2021-08-24 00:50 | Emergency (ER) | payer OTHER ==
[2021-08-24 02:20] VITALS: BP 116/84; PULSE 84; TEMP 98.5; BMI 19.0
== END 2021-08-24 03:35 | disposition home or self-care (01) ==
LOC: JER 00:50
DX: J06.9 Acute upper respiratory infection, unspecified (principal)
CPT/HCPCS: 0241U-QW; 84703; 99283-25

== ENCOUNTER 2021-12-17 12:27 | Emergency (ER) | payer OTHER ==
[2021-12-17 12:52] VITALS: BP 104/60; PULSE 90; RESP 18; TEMP 97.9; BMI 18.8
[2021-12-17 15:34] LABS: URINE APPEARANCE CLEAR; URINE BILIRUBIN NEGATIVE (NEGATIVE); URINE COLOR YELLOW; URINE GLUCOSE (UA) NEGATIVE (NEGATIVE); URINE KETONE NEGATIVE (NEGATIVE); URINE LEUK ESTERASE 1+ (NEGATIVE); URINE NITRITE NEGATIVE (NEGATIVE); URINE PROTEIN 1+ (NEGATIVE); URINE UROBILINOGEN 0.2 mg/dL (0.2-1.0)
[2021-12-17 15:52] LABS: EPI CELLS 34 /uL (0-25.1); HYALINE CASTS 2 /uL (0-3.1); URINE BACTERIA 8776 /uL (0-1359); URINE RBC 34 /uL (0-23.9); URINE WBC 282 /uL (0-25.8)
== END 2021-12-17 16:04 | disposition home or self-care (01) ==
LOC: JER 12:27 → JERFT 12:27
DX: N30.01 Acute cystitis with hematuria (principal)
CPT/HCPCS: 36415; 81003; 84703; 87086; 87186; 87491; 87591; 99283-25